=== PATIENT | female | born 1950 | race Caucasian/White ===

== ENCOUNTER 2023-04-10 14:31 | Outpatient (OUT) | payer MEDICARE, SELFPAY ==
--- NOTE | 2023-04-10 | MM_ITS ---
Patient Name: AIMEE SINGH MR#: [id number] : 1950 Exam Date: 04/10/2023 Ordering Doctor: DR ANABELL CRUZ . RADIOLOGY REPORT PROCEDURE: MM TOMOSYNTHESIS SCREENING BI COMPARISON: MG MAMM SCREEN 3D JANELL CAD, 10/21/2020. MG MAMM SCREEN JANELL W CAD, 06/27/2017. MG MAMM JANELL SCRN W CAD DIG, 10/16/2013. INDICATIONS: Janell Screening Mammogram Calculator Name NCI Breast Cancer Risk Assessment Tool 5 Year Breast Cancer Risk 2.10% Lifetime Breast Cancer Risk 6.10% Personal Breast Cancer No Personal Ovarian Cancer No Treatments Excision Family Cancers None LOCATION: [facility] BREAST COMPOSITION: Scattered areas fibroglandular density. FINDINGS: DIAGNOSTIC CATEGORY 2--BENIGN FINDING: RIGHT BREAST: No significant suspicious finding. No significant change has occurred. LEFT BREAST: No significant suspicious finding. Scattered benign-appearing nodules are present. No significant change has occurred. RECOMMENDATIONS: ROUTINE MAMMOGRAM AND CLINICAL EVALUATION IN 12 MONTHS. PLEASE NOTE: A NORMAL MAMMOGRAM DOES NOT EXCLUDE THE POSSIBILITY OF BREAST CANCER. A CLINICALLY SUSPICIOUS PALPABLE LUMP SHOULD BE BIOPSIED. Dictated by: Peter Kaufman M.D. on 04/12/2023 at 12:49 Approved by: Peter Kaufman M.D. on 04/12/2023 at 12:51
== END 2023-04-10 14:32 | disposition home or self-care (01) ==
LOC: MAMMO 14:31
PROVIDERS: PCP Family Medicine; Visit Provider Family Medicine
DX: Z12.31 Encounter for screening mammogram for malignant neoplasm of breast (principal)
CPT/HCPCS: 77063; 77067

== ENCOUNTER 2023-10-04 10:50 | Outpatient (OUT) | payer MEDICARE, SELFPAY ==
--- NOTE | 2023-10-04 10:56 | XR_ITS ---
[address] [address] Patient Name: AIMEE SINGH MRN: [id number] date: 1950 Sex: F Assigned Patient Location: [facility] Current Patient Location: [facility] Accession/Order Number: [id number] Exam Date: 10/04/2023 11:04 Report Date: 10/04/2023 13:24 At the request of: ABHIJEET OSEI Procedure: XR abdomen 1V EXAMINATION: XR abdomen 1V HISTORY: Kidney stone N20.0, Asymptomatic Bacteriuria R82.71 COMPARISON: 10/06/2022 FINDINGS: KIDNEY/URETER - RIGHT: Suspected punctate upper pole nephrolith measuring 3 mm KIDNEY/URETER - LEFT: No visible renal or ureteral calcifications. PELVIS: No visible ureteral calcifications. Any visible calcifications favor phleboliths. BOWEL: No abnormal dilation or deviation. BONES: No acute abnormality. OTHER: Negative. No abnormal gaseous collections. XR/XR abdomen 1V IMPRESSION: Suspected 3 mm right nephrolith Electronically authenticated by: SAIMA LUCAS Date: 10/04/2023 13:24
--- OUTSIDE RECORDS SUMMARY | 2023-10-04 11:13 | XMS_ITS | CCD ---
Author Organization [facility] Care Team Providers Care Customs Compliance Manager Name Role Phone DR JEFFREY BOSTON Primary Care Unavailable ABHIJEET OSEI Admitting Unavailable ABHIJEET OSEI Attending Unavailable ABHIJEET OSEI Attending Unavailable Pema Stauffer Unavailable Jeffrey Cruz Primary Care Unavailable Pema Stauffer Attending Unavailable Eh Pema Admitting Unavailable JEFFREY CRUZ Attending Unavailable JEFFREY CRUZ Attending Unavailable JEFFREY CRUZ Attending Unavailable JR. RASMUSSEN GEORGE C Attending Unavaila ble Allergies Allergy Classification Reported Allergen(s) Allergy Type Date of Onset Reaction(s) Facility (2 sources) Codeine; Translations: [codeine] Drug Allergy [facility] Repository (1 source) Codeine Drug Allergy Unknown [facility] Other (1 source) Codeine Drug Allergy 01-30-2018 [facility] Repository Medications Current Medications Medication Drug Class(es) Dates Sig (Normalized) Sig (Original) Allopurinol (1 source) Xanthine Oxidase Inhibitor Allopurinol Active Gemfibrozil (1 source) Peroxisome Proliferator Receptor alpha Agonist Gemfibrozil Active levothyroxine (1 source) l-Thyroxine Levothyroxine So dium Active Losartan (1 source) Angiotensin 2 Receptor Carmencita Losartan Potassium Active metFORMIN (1 source) Biguanide Metformin Active potassium citrate (1 source) Potassium Citrat e Active Problems Problem Classification Problem Date Documented Da te Episodic/Chronic Other nutritional; endocrine; and metabolic disorders (1 source) Body mass index 30+ - obesity; Translations: [Body mass index (BMI) 37.0-37.9, adult] Chronic Other nutritional; endocrine; and metabolic disorders (1 source) Body mass index 40+ - severely obese; Translations: [Body mass index (BMI) 40.0-44.9, adult] Chronic Other nutritional; endocrine; and metabolic disorders (1 source) Body mass index (BMI) 37.0-37.9, adult Chronic Residual codes; unclassified (2 sources) Obstructive sleep apnea syndrome; Translations: [Obstructive sleep apnea (adult) (pediatric)] Chronic Residual codes; unclassified (1 source) Obstructive sleep apnea (adult) (pediatric) Chronic Residual codes; unclassified (1 source) Obstructive sleep apnea (adult)(pediatric); Translations: [Obstructive sleep apnea (adult) (pediatric)] Onset: 11-29-2022 Chronic Results Test Name Value Interpretation Reference Range Facil ity Hemoglobin A1Con 05-31-2021 EAG 116.89 Normal [facility] Specialist Comment on above: Performed By: #### A 1C #### [facility] [address] [place], [place] [id number] HbA1c (Bld) [Mass fraction] 5.7 % Normal 4.0-6.0 [facility] Chief Of Pediatric Urology Comment on above: Performed By: #### A 1C #### [facility] [address] [place], [place] [id number] Vital Signs Date Time Vital Sign Value Performing Clinician Facility 11-29-2022 11:00-0400 Body height Pema Stauffer Other [facility] Other 11-29-2022 11:00-0400 Body mass index (BMI) [Ratio] 37.86 kg/m2 Pema Stauffer Other [facility] Other 11-29-2022 11:00-0400 Body weight 93.9 kg Pema Stauffer Other [facility] Other 11-29-2022 11:00-0400 Diastolic blood pressure 86 mm[Hg] Pema Stauffer Other [facility] Other 11-29-2022 11:00-0400 SaO2% (BldA) [Mass fraction] 98 % Pema Stauffer Other [facility] Other 11-29-2022 11:00-0400 Systolic blood pressure 147 mm[Hg] Pema Stauffer Other [place] [employer] Other Encounters Encounter Date Encounter Type Care Provider Facility Start: 09-11-2023 End: 09-11-2023 ambulatory JEFFREY CRUZ Not Available Start: 08-24-2023 End: 08-24-2023 ambulatory JEFFREY CRUZ Not Available Start: 05-25-2023 End: 05-25-2023 ambulatory JEFFREY CRUZ Not Available Start: 05-01-2023 End: 05-01-2023 ambulatory JAIDA FRIEDMAN Not Available Start: 11-29-2022 Office outpatient vi sit 15 minutes Pema Stauffer [facility] Start: 11-29-2022 End: 11-29-2022 ambulatory Jeffrey Cruz [facility] [employer] Other Start: 10-12-2022 ambulatory ABHIJEET [place] ty:DEVORA Reyez Start: 08-26-[address] JEFFREY CRUZ . Fac ility:[facility] Payers Date Payer Category Payer Private Health Insurance [id number] 2020 Unknown [id number] 2.16.84 [id number] 2017 Medicare [id number] 2.1 [id number] 1959 Self-pay 1950 Unknown [id number] 2.16.84 [id number] 1950 Unknown [id number] 2.16.8 [id number] 1950 Unknown [id number] 2.16.84 [id number] 1950 Unknown [id number] 2.16.84 [id number] 1950 Unknown [id number] [id number] 1950 Unknown [id number] [id number] Unknown [id number] 2.16.8 [id number] Social History Date Type Detail Facility Sex Assigned At [facility] [employer] Other Evaluation note 11-29-2022 Note Date & Type Note Facility 11-29-2022 Evaluation note Encounter Date Diagnosis Assessment Notes Nov, Obstructive sleep apnea (ICD-10 - G47.33) eileen Rodríguez is using and benefiting from treatment. Download was reviewed with patient. Her AHI is well controlled, however she does have a significant mask leakage with her current mask style and she is experiencing significant dryness. She is reluctant on switching masks at this time as she has had the same mask since she started with PAP therapy and has not had issues with leakage previously. She thinks that it's likely that she may just need new supplies, which is possible. Patient will get new supplies and we will recheck a DL in 2 months to re-evaluate leak. Patient has lost a significant amount of weight lately and this could have affected the seal. She was encouraged to continue to use her machine nightly throughout the entire night as this does provide clinical benefit. A prescription was sent to the [employer] for new supplies throughout the year, as well as a request to connect her machine wirelessly if possible. She will follow up in sleep clinic in 1 year, or sooner pending results of download. Nov, BMI 37.0-37.9, adult (ICD-10 - Z68.37) Patient has lost a significant amount of weight since last OV, positive effects of weight loss on RICARDO were reviewed. She was advised to continue with diet modification and increase activity as tolerated. We will continue to monitor. Nov, Other Call if any questions or problems. For Sleep Apnea: Patient is advised to work on healthy diet choices and appropriate servings, weight control, regular exercise as directed, and reduce fat intake. Use machine regularly, and keep up with mask changes as needed. Call if problems with mask toleration, increased sleepiness, or poor response to treatment. Take medication as prescribed, keep follow up appointments, get any testing that's been ordered in a timely fashion. Do not smoke. Follow Up [employer] [facility] [employer] Other History general Narrative - Reported Note Date & Type Note Facility History general Narrative - Reported Type Medical History RICARDO (obstructive sleep apnea) Medical History Essential hypertension Medical History Mixed hyperlipidemia Medical History Acquired hypothyroidism Medical History Type 2 diabetes javier itus without complication, without long-term current use of insulin Medical History cataracts Medical History kidney stones Surgical History cataract surgery Surgical History lithotripsy [employer] [facility] [employer] Other Summary Purpose Family History No Family History Records FoundNo Family History Records FoundNo Family History Records FoundNo Family History Records FoundNo Family History Records Found Advance Directives No Advanced Directives Records FoundNo Advanced Directives Records FoundNo Advanced Directives Records FoundNo Advanced Directives Records FoundNo Advanced Directives Records Found Additional Source Comments INFORMATION SOURCE (unrecogn ized section and content) DATE CREATED AUTHOR 05/31/2021 [facility] DATE CREATED AUTHOR AUTHOR'S ORGANIZ ATION [facility]/27/2022 [facility] DATE CREATED AUTHOR AUTHOR'S ORGANIZ ATION 09/06/2022 [place] [facility] DATE CREATED AUTHOR AUTHOR'S ORGANIZ ATION 12/09/2022 [facility] DATE CREATED AUTHOR AUTHOR'S ORGANIZ ATION 09/12/2023 [facility] EPIC REASON FOR VISIT (unrecogniz ed section and content) ANNUAL FOR RECORDS PERTAINING TO PATIENTS WHO ARE OR HAVE BEEN ENROLLED IN A CHEMICAL DEPENDENCY/SUBSTANCEABUSE PROGRAM, SOME INFORMATION MAY BE OMITTED. This clinical summary was aggregated from multiple sources. Caution should be exercised in using it in the provision of clinical care. This summary normalizes information from multiple sources, and as a consequence, information in this document may materially change the coding, format and clinical context of patient data. In addition, data may be omitted in some cases. CLINICAL DECISIONS SHOULD BE BASED ON THE PRIMARY CLINICAL RECORDS. [employer] provides no warranty or guarantee of the accuracy or completeness of information in this document.
== END 2023-10-04 10:51 | disposition home or self-care (01) ==
LOC: RAD 10:52
PROVIDERS: PCP Family Medicine; Visit Provider Physician Assistant
DX: N20.0 Calculus of kidney (principal); R82.71 Bacteriuria
CPT/HCPCS: 74018

== ENCOUNTER 2024-09-24 10:44 | Outpatient (OUT) | payer MEDICARE, SELFPAY ==
--- NOTE | 2024-09-24 10:52 | MM_ITS ---
Patient Name: AIMEE SINGH MR#: [id number] : 1950 Exam Date: 09/24/2024 Ordering Doctor: DR ANABELL CRUZ . RADIOLOGY REPORT PROCEDURE: MM TOMOSYNTHESIS SCREENING BI COMPARISON: MM TOMOSYNTHESIS SCREENING BI, 04/10/2023. MG MAMM SCREEN 3D JANELL CAD, 10/21/2020. MG MAMM SCREEN JANELL W CAD, 06/27/2017. MG MAMM JANELL SCRN W CAD DIG, 10/16/2013. INDICATIONS: Screening Calculator Name NCI Breast Cancer Risk Assessment Tool 5 Year Breast Cancer Risk 2.10% Lifetime Breast Cancer Risk 5.60% Personal Breast Cancer No Personal Ovarian Cancer No Treatments Excision Family Cancers None LOCATION: [facility] BREAST COMPOSITION: There are scattered areas of fibroglandular density. FINDINGS: DIAGNOSTIC CATEGORY 1--NEGATIVE. RIGHT BREAST: No significant suspicious finding. LEFT BREAST: No significant suspicious finding. RECOMMENDATIONS: ROUTINE MAMMOGRAM AND CLINICAL EVALUATION IN 12 MONTHS. PLEASE NOTE: A NORMAL MAMMOGRAM DOES NOT EXCLUDE THE POSSIBILITY OF BREAST CANCER. A CLINICALLY SUSPICIOUS PALPABLE LUMP SHOULD BE BIOPSIED. Dictated by: Ronald Yancey DO on 09/25/2024 at 15:42 Approved by: Ronald Yancey DO on 09/25/2024 at 15:45
== END 2024-09-24 10:45 | disposition home or self-care (01) ==
LOC: MAMMO 10:46
PROVIDERS: PCP Family Medicine; Visit Provider Family Medicine
DX: Z12.31 Encounter for screening mammogram for malignant neoplasm of breast (principal); Z13.820 Encounter for screening for osteoporosis; Z78.0 Asymptomatic menopausal state
CPT/HCPCS: 77063; 77067; 77080

== ENCOUNTER 2024-10-08 12:03 | Outpatient (OUT) | payer MEDICARE, SELFPAY ==
--- NOTE | 2024-10-08 12:08 | XR_ITS ---
The [address] [address] Patient Name: AIMEE SINGH MRN: [id number] date: 1950 Sex: F Assigned Patient Location: [facility] Current Patient Location: [facility] Accession/Order Number: [id number] Exam Date: 10/08/2024 15:25 Report Date: 10/08/2024 15:26 At the request of: ABHIJEET BAR Procedure: XR abdomen 1V XR abdomen 1V 10/08/2024 12:28 PM SIGNS AND SYMPTOMS: ^kidney stone PROTOCOL: Frontal radiographs of the abdomen and pelvis COMPARISON: 10/04/2023 FINDINGS: Calcified granulomas are noted in the spleen. No definite radiodense renal, ureteral, or bladder stones. Vascular calcifications are present in the pelvis. Degenerative changes are noted in the lumbar spine and sacroiliac joints. There is a moderate to large amount stool within the colon. XR/XR abdomen 1V IMPRESSION: No definite radiodense renal, ureteral, or bladder stones. Impression dictated by: George Robert M.D. 10/08/2024 3:26 PM Dictation Location: [place] [address] Electronically authenticated by: [id number] Y Date: 10/08/2024 15:26
== END 2024-10-08 12:04 | disposition home or self-care (01) ==
LOC: RAD 12:05
PROVIDERS: PCP Family Medicine; Visit Provider Physician Assistant
DX: N20.0 Calculus of kidney (principal)
CPT/HCPCS: 74018